=== PATIENT | male | born 1985 | race Caucasian/White ===

== ENCOUNTER 2019-10-15 17:43 | Outpatient (CLI) | payer BC, SELFPAY ==
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
[2019-10-15 18:44] LABS: Alanine Aminotransferase 31 U/L (16-63); Albumin Level 4.2 g/dL (3.4-5.0); Alkaline Phosphatase 67 U/L (46-116); Anion Gap 11.5 mmol/L (7-16); Aspartate Amino Transferase 18 U/L (15-37); Bilirubin,Total 0.9 mg/dL (0.00-1.00); Blood Urea Nitrogen 25 mg/dL (7-18); Carbon Dioxide 32 mmol/L (21-32); Chloride 102 mmol/L (98-108); Estimated Glomerular Filt Rate > 60; Glucose 92 mg/dL (70-99); Osmolality Calculated 296 mOsm/kg (285-295); Potassium 4.5 mmol/L (3.5-5.1); Sodium 141 mmol/L (136-145); Thyroid Stimulating Hormone 1.84 uIU/mL (0.36-3.74)
== END 2019-10-15 17:44 | disposition home or self-care (01) ==
LOC: CHSLAB 17:48
PROVIDERS: PCP Nurse Practitioner Family; Visit Provider Nurse Practitioner Family
DX: Z00.00 Encounter for general adult medical examination without abnormal findings (principal); R53.83 Other fatigue; M54.2 Cervicalgia
CPT/HCPCS: 36415; 72040; 80053; 84443

== ENCOUNTER 2020-12-30 15:03 | Outpatient (NON) | payer BC, SELFPAY | END 2020-12-30 15:04 | disposition home or self-care (01) | LOC: CHSLAB 15:05 | PROVIDERS: PCP Nurse Practitioner Family; Visit Provider Family Medicine | DX: L94.0 Localized scleroderma [morphea] (principal) | CPT/HCPCS: 88305; 88313; 88342 ==

== ENCOUNTER 2022-07-31 16:28 | Outpatient (CLI) | payer OTHER, SELFPAY ==
--- NOTE | ~2022-07-31 | XR_ITS ---
Cervical Spine: AP, lateral, open-mouth views Clinical History: Pain Findings: The normal lordotic curve is maintained. The vertebral bodies and posterior elements appea r intact. The intervertebral disc spaces are well maintained. Pre-vertebral soft tissues are unremar kable. Impression: No significant abnormality is seen. Reviewed, dictated and finalized at [facility]. Impression: No significant abnormality is seen.
--- NOTE | ~2022-07-31 | XR_ITS ---
Lumbosacral Spine: AP and lateral views Clinical History: Pain Findings: The normal lordotic curve is maintained. The vertebral bodies and posterior elements are i ntact. The intervertebral disc spaces are preserved. The sacroiliac joints are normally outlined. Impression: No significant abnormality. Reviewed, dictated and finalized at [facility]. Impression: No significant abnormality.
--- NOTE | ~2022-07-31 | XR_ITS ---
Thoracic spine: Clinical Indication: Back pain AP and lateral views were performed. No fracture is seen. There is kyphosis of the thoracic spine. No fracture or subluxation evident. The intervertebral disc spaces appear normal. Paravertebral soft tissues appear normal. Impression: Kyphosis. Reviewed, dictated and finalized at [facility]. Impression: Kyphosis.
== END 2022-07-31 16:29 | disposition home or self-care (01) ==
LOC: CHSIMG 16:32
PROVIDERS: PCP Nurse Practitioner Family; Visit Provider Nurse Practitioner Family
DX: M54.2 Cervicalgia (principal); Z87.39 Personal history of other diseases of the musculoskeletal system and connective tissue; M54.50 Low back pain, unspecified; M40.204 Unspecified kyphosis, thoracic region
CPT/HCPCS: 72040; 72070; 72100

== ENCOUNTER 2022-08-16 16:33 | Outpatient (CLI) | payer OTHER, SELFPAY ==
[2022-08-16 17:26] LABS: Hematocrit 40.4 % (40.0-54.0); Hemoglobin 13.2 g/dL (14.0-18.0); Mean Corpuscular HGB Conc 32.7 g/dL (32.0-36.0); Mean Corpuscular Hemoglobin 29.8 pg (27.0-31.0); Mean Corpuscular Volume 91.2 fL (78.0-102.0); Mean Platelet Volume 12.3 fl (8.7-11.0); Platelet Count Result 221 K/mm3 (150-420); Red Blood Count 4.43 M/mm3 (4.70-6.10); Red Cell Distribution Width 13.8 % (11.6-14.4); White Blood Count 4.8 K/mm3 (4.8-10.8)
[2022-08-16 17:43] LABS: Alanine Aminotransferase 26 U/L (16-63); Albumin Level 4.5 g/dL (3.4-5.0); Alkaline Phosphatase 75 U/L (46-116); Anion Gap 6 mmol/L (8-16); Aspartate Amino Transferase 13 U/L (15-37); Bilirubin,Total 1.2 mg/dL (0.00-1.00); Blood Urea Nitrogen 13 mg/dL (7-18); Calcium 9.2 mg/dL (8.5-10.1); Carbon Dioxide 32 mmol/L (21-32); Chloride 102 mmol/L (98-108); Cholesterol 146 mg/dL (0-200); Estimated Glomerular Filt Rate > 60; Glucose 92 mg/dL (70-99); HDL Direct 40 mg/dL (40-60); LDL Cholesterol Calculated 82 mg/dL (<130); Osmolality Calculated 290 mOsm/kg (285-295); Potassium 4.2 mmol/L (3.5-5.1); Sodium 140 mmol/L (136-145); Thyroid Stimulating Hormone 1.77 uIU/mL (0.36-3.74); Total Protein 7.7 g/dL (6.4-8.2); Triglycerides 121 mg/dL (0-150)
== END 2022-08-16 16:34 | disposition home or self-care (01) ==
LOC: CHSLAB 16:36
PROVIDERS: PCP Nurse Practitioner Family; Visit Provider Nurse Practitioner Family
DX: Z00.00 Encounter for general adult medical examination without abnormal findings (principal); F41.1 Generalized anxiety disorder; Z82.0 Family history of epilepsy and other diseases of the nervous system
CPT/HCPCS: 36415; 80053; 80061; 82542; 84443; 85027

== ENCOUNTER 2024-03-20 18:30 | Emergency (ER) | payer MEDICAID, SELFPAY ==
[2024-03-20 18:31] VITALS: BP 142/86; PULSE 79; RESP 18; TEMP 36.6; O2SAT 99
--- NOTE | 2024-03-20 18:36 | ED_ITS ---
HPI - General Adult General Chief complaint: Wound/Laceration Stated complaint: cut foot Time Seen by Provider: 03/20/24 18:33 History of Present Illness HPI narrative: Luis Antonio is a previously healthy 39M that presented to the ED after he went to put his boot on and cut the medial side of his right foot on the blade. No other injuries. Related Data Home Medications Medication Instructions Recorded Confirmed fluoxetine 20 mg capsule 20 mg PO DAILY 03/20/24 03/20/24 Allergies Allergy/AdvReac Type Severity Reaction Status Date / Time sulfamethoxazole [Septra] Allergy Intermediate Unknown Verified 03/20/24 18:53 trimethoprim [Septra] Allergy Intermediate Unknown Verified 03/20/24 18:53 Review of Systems Constitutional: Constitutional: Reports no additional constitutional complaints DAMARIS Social History Social History Smoking status: Never smoker Exam Const: General: cooperative, healthy appearing, comfortable, no acute distress, well developed, alert, awake and Physically active Orientat ion/consciousness: oriented to person, oriented to place and oriented to time HENMT: Head: normal to inspection, normocephalic and atraumatic Ears: hearing grossly normal bilaterally and external ears normal Face/Nose/Sinus: Normal external nose present Eyes: General: appearance normal, both eyes and all related structures Periorbital: periorbital findings normal Sclera: sclerae normal Pupils: Equal, round and reactive pupils present Neck: Neck: normal visual inspection Chest: Chest palpation & inspection: normal inspection of the chest Resp: Effort & Inspection: normal respiratory effort, able to speak in complete sentences and no respiratory distress Cardio: Jugular venous distension: no JVD Skin: General skin exam: normal color and no rashes or lesions noted Other: 1.5 cm laceration on the medial ankle Neuro: General: oriented to person, oriented to place and oriented to time Cranial nerves: Yes Equal, round and reactive pupils present Extrem: General: normal to inspection Course Vital Signs Vital signs: Vital Signs Temperature 97.8 F 03/20/24 18:31 Pulse Rate 79 03/20/24 18:31 Respiratory Rate 18 03/20/24 18:31 Blood Pressure 142/86 H 03/20/24 18:31 Pulse Oximetry 99 03/20/24 18:31 Oxygen Delivery Room Air 03/20/24 18:31 Temperature 97.8 F 03/20/24 18:31 Pulse Rate 79 03/20/24 18:31 Respiratory Rate 18 03/20/24 18:31 Blood Pressure 142/86 H 03/20/24 18:31 Pulse Oximetry 99 03/20/24 18:31 Oxygen Delivery Room Air 03/20/24 18:31 Procedures Laceration Laceration 1: Date: 03/20/24 Time: 18:53 Site: lower extremity Side (If applicable): left Size (cm): 2 Description: linear Depth: simple, single layer Local Anesthetic: lidocaine 1% Amount of anesthesia used (mL): 1 ====== Skin Level ====== Skin layer closed with: nylon Size (cm): 4-0 Number of sutures: 3 Technique: simple, interrupted ====== Subcutaneous Layer ====== ====== Muscle Layer ====== ====== Tendon Layer ====== Medical Decision Making Vital Signs Vital Signs: Vital Signs Temperature 97.8 F 03/20/24 18:31 Pulse Rate 79 03/20/24 18:31 Respiratory Rate 18 03/20/24 18:31 Blood Pressure 142/86 H 03/20/24 18:31 Pulse Oximetry 99 03/20/24 18:31 Oxygen Delivery Room Air 03/20/24 18:31 Temperature 97.8 F 03/20/24 18:31 Pulse Rate 79 03/20/24 18:31 Respiratory Rate 18 03/20/24 18:31 Blood Pressure 142/86 H 03/20/24 18:31 Pulse Oximetry 99 03/20/24 18:31 Oxygen Delivery Room Air 03/20/24 18:31 Discharge Plan Discharge Clinical Impression: Laceration Patient Disposition: Home, Self-Care Condition: Stable Instructions: Care For Your Stitches (ED) Follow-up/Referrals: UNKNOWN,DOCTOR [Primary Care Provider] -
== END 2024-03-20 19:08 | disposition home or self-care (01) ==
LOC: CHSED 18:59
PROVIDERS: Emergency Provider Family Medicine; PCP Family Medicine
DX: S91.311A Laceration without foreign body, right foot, initial encounter (principal); Z79.899 Other long term (current) drug therapy; W45.8XXA Other foreign body or object entering through skin, initial encounter
CPT/HCPCS: 12001; 90715; 99282

== ENCOUNTER 2024-10-01 12:28 | Emergency (ER) | payer SELFPAY ==
[2024-10-01 12:30] VITALS: BP 118/68; PULSE 67; RESP 16; TEMP 36.7; O2SAT 100
--- NOTE | 2024-10-01 12:34 | ED.EYEPROB ---
HPI - Eye Problem General Chief complaint: Eye Problems Stated complaint: rt. eye injury Time Seen by Provider: 10/01/24 12:34 Mode of arrival: ambulatory Limitations: no limitations History of Present Illness HPI Narrative: 39-year-old male was working with a fan when 1 of the blades of the fan and hit his right eye. He sustained -- horizontal corneal abrasion in the lower part of the cornea. patient has eye pain, tearing and photophobia. -- 1 cm superficial laceration lateral to the outer canthus of the right eye chief complaint: eye pain, eye redness, eye injury and vision change Onset (ago): hour(s) ( 1 hour ago) Onset description: sudden Location: right eye Eye Symptoms: redness, pain, foreign body sensation, discharge and photophobia Place: work Mechanism: direct trauma If Pain, Quality: aching Associated symptoms: none Treatments Prior to Arrival: none Related Data Patient tetanus UTD: No Home Medications ?Medication ?Instructions ?Recorded ?Confirmed ?Last Taken ?Type multivitamin 1 tablet PO DAILY 12/30/20 12/21/23 Unknown History antiarthritic combination no.2 900 mg PO 10/03/23 12/21/23 Unknown History mg tablet (glucosamine-chondroitin) Allergies Allergy/AdvReac Type Severity Reaction Status Date / Time sulfamethoxazole (From Allergy Mild Unknown Verified 10/01/24 12:55 Sept) trimethoprim (From Septra) Allergy Mild Unknown Verified 10/01/24 12:55 Review of Systems Review of Systems: All systems reviewed & are unremarkable except as noted in HPI and below PMFSH Past Medical History Medical History Vitiligo Recurrent cold sores ELANA (generalized anxiety disorder) No significant past medical history Surgical History Surgical History No pertinent past surgical history Social History Social History Smoking status: Never smoker Alcohol intake: never Substance use: never Substance use type: does not use Living arrangements: with family Exam Narrative: vitals are stable Const: General: no acute distress Orientation/consciousness: patient oriented x3 Limitations: no limitations HENMT: Head: normal to inspection Ears: external ears normal Face/Nose/Sinus: Normal external nose present Face and sinus: normal facial exam Mouth: Yes Normal oral and palatal mucosa present Throat: posterior oropharynx normal Eyes: Conjunctivae: conjunctivae normal ( projectile erythema on the right side) Pupils: Equal, round and reactive pupils present EOM: EOMs intact bilaterally Direct Ophthalmoscopy: photophobia Other: corneal abrasion measuring 1 cm running horizontally in the lower part of the cornea. Anterior chamber is clear. Fluorescein staining revealed a 1 cm uptake in the lower part of the cornea. 1 cm superficial laceration lateral to the outer canthus of the eye Neck: Neck: normal visual inspection and no lymphadenopathy Chest: Chest palpation & inspection: normal inspection of the chest Resp: Effort & Inspection: normal respiratory effort Auscultation: clear to auscultation bilaterally Cardio: Rate: regular rate Rhythm: regular rhythm GI: Auscultation: normal bowel sounds Other: no tenderness/rigidity / rebound. : General: Yes no CVA tenderness Back/Spine/Pelvis: Back: no CVA tenderness Skin: General skin exam: normal color Rashes: no rashes Wounds: no wounds Other: 1 cm superficial laceration lateral to the outer canthus of the right eye Neuro: General: patient oriented x3, moves all extremities, no meningeal signs, no focal motor deficits and CN's II-XI intact bilaterally Cranial nerves: Yes Nystagmus not present Speech: normal speech Gait exam (Neuro): Normal gait present Extrem: General: normal to inspection and no clubbing, cyanosis or edema Psych: Mental Status: mental status grossly normal Affect: normal affect Attitude: cooperative Course Course Emergency Course: eye trauma-- corneal abrasion 1 cm superficial laceration lateral to the outer canthus of the right Vital Signs Vital signs: Vital Signs Temperature 36.7 C 10/01/24 12:30 Pulse Rate 67 10/01/24 12:30 Respiratory Rate 16 10/01/24 12:30 Blood Pressure 118/68 10/01/24 12:30 Pulse Oximetry 100 10/01/24 12:30 Oxygen Delivery Room Air 10/01/24 12:30 Temperature 36.7 C 10/01/24 12:30 Pulse Rate 67 10/01/24 12:30 Respiratory Rate 16 10/01/24 12:30 Blood Pressure 118/68 10/01/24 12:30 Pulse Oximetry 100 10/01/24 12:30 Oxygen Delivery Room Air 10/01/24 12:30 Procedures Laceration Laceration 1: Date: 10/01/24 Time: 12:59 Site: face Side (If applicable): right Size (cm): 1 Description: linear Depth: simple, single layer ====== Skin Level ====== Skin layer closed with: dermabond ====== Subcutaneous Layer ====== ====== Muscle Layer ====== ====== Tendon Layer ====== MDM - Eye Problem MDM Narrative Medical decision making narrative: facial laceration corneal abrasion Differential Diagnosis Differential diagnosis: Likely conjunctivitis Discharge Plan Discharge Clinical Impression: Abrasion, corneal Qualifiers: Encounter type: initial encounter Laterality: right Qualified Code(s): S05.01XA - Injury of conjunctiva and corneal abrasion without foreign body, right eye, initial encounter Facial laceration Qualifiers: Encounter type: initial encounter Qualified Code(s): S01.81XA - Laceration without foreign body of other part of head, initial encounter Patient Disposition: Home Condition: Stable Instructions: Antibiotic Form, Corneal Abrasion (ED), Facial Laceration (ED) Patient Language: Slovenian Prescriptions: New hydrocodone-acetaminophen 5-325 mg tablet 1 tablet PO Q6H PRN (Reason: pain) Qty: 10 0RF No Action multivitamin Tablet 1 tablet PO DAILY glucosamine-chondroitin 900 mg tablet PO fluoxetine 20 mg tablet See Rx Instructions .ROUTE .COMPLEX Qty: 120 1RF Dose Instruction: TAKE ONE TABLET BY MOUTH DAILY Rx Instructions: TAKE ONE TABLET BY MOUTH DAILY diclofenac sodium [Voltaren Arthritis Pain] 1 % gel 4 g topical QID Qty: 100 0RF Rx Instructions: apply to single knee, ankle, foot; for foot includes sole/toes/top of foot fluoxetine 20 mg tablet See Rx Instructions .ROUTE .COMPLEX Qty: 120 0RF Dose Instruction: TAKE ONE TABLET BY MOUTH DAILY Rx Instructions: TAKE ONE TABLET BY MOUTH DAILY Follow-up/Referrals: Lanette Aquino NP [Advanced Practice Nurse] - Time of Disposition: 12:58
[2024-10-01] MEDS: TETRACAINE HCL 0.5% OPHTH SOLN 4 ML BTL 1 DROP RIGHT EYE (12:42)
[2024-10-01] MEDS: FLUORESCEIN SOD 1 MG/STRIP RIGHT EYE (12:42)
[2024-10-01] MEDS: ERYTHROMYCIN OPHTH OINTMENT 3.5 GM TUBE 1 APPLIC RIGHT EYE (12:51)
[2024-10-01] MEDS: DACRIOSE EYE IRRIGATION 118 ML BOTTLE RIGHT EYE (12:51)
[2024-10-01] MEDS: TETANUS,DIPHTHERIA,AC PERTUSSIS ADULT 0.5 ML (ADACEL) IM (13:11)
--- NOTE | 2024-10-01 13:47 | PC.NURSE ---
dad here to give pt ride home, not comfortable with driving home
== END 2024-10-01 13:34 | disposition home or self-care (01) ==
PROVIDERS: Emergency Provider Internal Medicine Critical Care Medicine; PCP Nurse Practitioner Family
DX: S05.01XA Injury of conjunctiva and corneal abrasion without foreign body, right eye, initial encounter (principal); S01.81XA Laceration without foreign body of other part of head, initial encounter; Z23 Encounter for immunization; W20.8XXA Other cause of strike by thrown, projected or falling object, initial encounter
CPT/HCPCS: 12011; 90471; 90715; 99283; A9270